=== PATIENT | female | born 1965 | race Caucasian/White ===

== ENCOUNTER 2017-12-26 07:30 | Day surgery (SDC) | payer OTHER, BC ==
[2017-12-23 15:06] VITALS: BMI 22.6
[2017-12-26] MEDS ORDERED: MINERAL OIL 25 ML OIL ONE (08:49)
[2017-12-26] MEDS ORDERED: BACITRACIN 15 GM TUBE TOPICAL OINTMENT ONE (08:49)
[2017-12-26] MEDS ORDERED: LIDOCAINE HCL/EPINEPHRINE/PF 20 ML VIAL ONE (08:50)
[2017-12-26] MEDS ORDERED: PROPOFOL 20 ML ONE (08:56)
[2017-12-26] MEDS ORDERED: fentaNYL CITRATE 250 MCG/5 ML VIAL ONE (08:56)
[2017-12-26] MEDS ORDERED: ROCURONIUM BROMIDE 50 MG/5 ML VIAL ONE (08:57)
[2017-12-26] MEDS ORDERED: ONDANSETRON 4 MG/2 ML VIAL ONE (08:57)
[2017-12-26] MEDS ORDERED: MIDAZOLAM HCL 2 MG/2 ML SINGLE DOSE VIAL ONE (08:57)
[2017-12-26] MEDS ORDERED: DEXAMETHASONE SOD PHOSPHATE 4 MG/1 ML VIAL ONE (08:57)
[2017-12-26] MEDS ORDERED: LIDOCAINE HCL/PF 2% SDV 5ML VIAL ONE (08:57)
[2017-12-26] MEDS ORDERED: LIDOCAINE 1%/EPI 1:100000 (20 ML MULTI DOSE VIAL) ONE (09:09)
[2017-12-26] MEDS ORDERED: ceFAZolin SODIUM 1 GM VIAL ONE (09:28)
[2017-12-26] MEDS ORDERED: MINERAL OIL/PETROLATUM,WHITE 3.5 GM TUBE ONE (09:34)
[2017-12-26] MEDS ORDERED: LIDOCAINE 1%/EPI 1:100000 (20 ML MULTI DOSE VIAL) IJ ONE ×3 (10:00)
[2017-12-26] MEDS ORDERED: ePHEDrine SULFATE 50 MG/1 ML AMPULE ONE (10:30)
[2017-12-26] MEDS ORDERED: NITROGLYCERIN 2% OINTMENT - 1GM PACKET TD ONE (10:38)
[2017-12-26] MEDS ORDERED: ONDANSETRON 4 MG/2 ML VIAL IVPUSH PRN (11:56)
[2017-12-26] MEDS ORDERED: oxyCODONE HCL 5 MG TABLET PO PRN ×4 (11:56→12:00)
[2017-12-26] MEDS ORDERED: ONDANSETRON 4 MG/2 ML VIAL IVPB PRN (12:00)
[2017-12-26] MEDS ORDERED: LACTATED RINGERS SOLUTION 1,000 ML IV SCH ×2 (12:00)
--- NOTE | 2017-12-26 12:00 | OP ---
Operative Note - Note: Operative Date: 12/26/17 Pre-Operative Diagnosis: nasal deect post basal cell carcinoma Operation: forehead flap and skin graft reconstruction of nose Findings: above Post-Operative Diagnosis: Same as Pre-op Surgeon: Eric Wood
--- NOTE | 2017-12-26 12:53 | OP ---
DATE OF OPERATION: 12/26/2017 TITLE OF PROCEDURE: 1. Right-sided paramedian forehead flap reconstruction of nasal tip defect. 2. Excision of nasal tip defect in preparation for flap reconstruction. 3. Full-thickness skin graft from right groin to the nasal flap reconstruction. 4. Local rotation flap reconstruction of donor site defect to scalp. ATTENDING SURGEON: Eric Goode MD ANESTHESIA: General endotracheal anesthesia. A total of 10 mL of 1% lidocaine with 1:100,000 epinephrine are injected locally into the donor site for the flap in the forehead and the scalp and an additional 10 mL of 1% lidocaine with 1:100,000 epinephrine injected into the donor site on the right groin for the skin graft. The patient is marked in the holding area awake and aware of incisions, resulting scars as well as risks, benefits and alternatives for the procedure. Understands and agrees to proceed. Patient is brought to the operating room and placed in the supine position. Sequential compression stockings and TERRI hose are applied. Prior to prepping and draping Doppler is used to manuel out the supratrochlear artery on the patient's right side. The right side is chosen because there is a transverse scar on the forehead on the left side from a previous basal cell carcinoma excision. The artery is identified in its usual location and the flap is marked and patterned including this artery in its base. The artery is also traced using a Doppler as far as possible on to the forehead so that the flap could be centered over this artery which is well within the pattern that was planned. A template is used to plan the tip to be inset of the flap which is a 25-mm width of the superior forehead. This is then transposed using a lap pad to assess for the distance and length. All of this is assured. Once the local anesthetic is then injected the patient is prepped and draped in standard surgical fashion. A timeout is called. Patient, procedure, side and sites are verified. At this point the flap elevation begins distally in the scalp. A subcutaneous elevation is performed under direct vision to a point proximal to where the tip inset will be. At that point the flap is transitioned into a submuscular plane harvesting frontalis muscle with the flap to a level roughly 2 cm superior to the orbital rim. At this point a subperiosteal plane is entered and continuing elevation is performed with a [place] elevator. The flap is gently and carefully mobilized until sufficient length is achieved to inset into the distal tip of the nose without tension with the flap temporarily inset with stay sutures. It is clearly demonstrated that the flap is without ischemia or congestion in this position. The flap is allowed to sit in this position for further evaluation while a full-thickness skin graft is harvested from the right groin. The right groin is injected with 10 mL of 1% lidocaine with 1:100,000 epinephrine. An appropriately sized graft is harvested in a full-thickness fashion from the right groin. Hemostasis is achieved and layered closure is performed of the right groin with series of interrupted buried deep dermal 3-0 Monocryl suture followed by running subcuticular 3-0 Monocryl sutures; 1/2-inch full-length Steri-Strips are used for dressings. The graft is pie crusted and it is then inset into the posterior raw edge of the flap with a running 5-0 chromic gut suture. There is adequate skin graft to cover the full free surface of the flap except for the distal portion to be inset. With the flap now in this position for an extended period of time it is determined that this flap is robustly viable and decision is made to move forward with sacrificing the residuum of the nasal tip skin. This is done down to the level of the lower lateral cartilages for a full nasal tip subunit inset of the flap. Hemostasis is meticulously achieved with bipolar cautery. The flap is then trimmed to conform to the created defect and is inset with a series of interrupted 6-0 nylon sutures. The flap tip remains pink and viable without signs of ischemia or congestion. Attention is then directed toward closure of the forehead and scalp. The proximal portion of the forehead is able to be closed primarily. This is done with a series of tailor-tacking alok followed by a series of interrupted buried deep dermal 3-0 Monocryl suture followed by a running 5-0 nylon suture. The most distal element of the flap which was slightly wider for purposes of covering the entire nasal tip subunit is not able to be closed primarily due to undue tension. For this purpose a small rotation scalp flap is cut with a backcut on the galea and galeal scoring. This rotation is able to be mobilized into the defect. The defect of the rotation flap is closed primarily with a series of interrupted skin alok. The tip of the flap is then inset into the forehead defect with a combination of alok and 5-0 nylon suture. This flap appears pink and viable. The tip of the forehead flap is then dressed routinely with nitropaste prophylactically and the skin graft is dressed with a bacitracin Xeroform, loose 4 x 4 and Hypafix gauze are applied. Patient awoken from anesthesia having tolerated procedure well. Transferred to recovery without complication. It should be noted that throughout the entirety of the case Lacri-Lube had been placed in the eyes for protection. ERIC GOODE M.D. [id number]
[2017-12-26 13:31] VITALS: TEMP 98.1
[2017-12-26 14:32] VITALS: BP 113/62; PULSE 95
== END 2017-12-26 14:30 | disposition home or self-care (01) ==
LOC: FASU 07:30
PROVIDERS: ATTEND Plastic Surgery
PROC: 0HB0XZZ Excision of Scalp Skin, External Approach (ICD-10-PCS; 2017-12-26)
PROC: 0JX10ZB Transfer Face Subcutaneous Tissue and Fascia with Skin and Subcutaneous Tissue, Open Approach (ICD-10-PCS; 2017-12-26)
PROC: 0HR1X73 Replacement of Face Skin with Autologous Tissue Substitute, Full Thickness, External Approach (ICD-10-PCS; principal; 2017-12-26 09:00)
DX: C44.311 Basal cell carcinoma of skin of nose (principal)
CPT/HCPCS: 94760

== ENCOUNTER 2018-01-21 12:51 | Day surgery (SDC) | payer OTHER, BC ==
[2018-01-20 11:15] VITALS: BMI 22.6
[2018-01-21] MEDS ORDERED: NITROGLYCERIN 2% OINTMENT - 1GM PACKET TD ONE (13:21)
[2018-01-21] MEDS ORDERED: BACITRACIN 15 GM TUBE TOPICAL OINTMENT ONE (13:21)
[2018-01-21] MEDS ORDERED: LIDOCAINE 1%/EPI 1:100000 (20 ML MULTI DOSE VIAL) ONE (13:21)
[2018-01-21] MEDS ORDERED: oxyCODONE HCL 5 MG TABLET PO PRN ×3 (13:35→16:02)
[2018-01-21] MEDS ORDERED: ACETAMINOPHEN INJECTION 100 ML IVPB ONE (13:38)
[2018-01-21] MEDS ORDERED: PROPOFOL 20 ML ONE ×2 (13:40)
[2018-01-21] MEDS ORDERED: CLINDAMYCIN PHOSPHATE 600 MG/4 ML VIAL ONE (13:40)
[2018-01-21] MEDS ORDERED: ONDANSETRON 4 MG/2 ML VIAL ONE ×2 (13:41→15:43)
[2018-01-21] MEDS ORDERED: DEXAMETHASONE SOD PHOSPHATE 4 MG/1 ML VIAL ONE (13:41)
[2018-01-21] MEDS ORDERED: ROCURONIUM BROMIDE 50 MG/5 ML VIAL ONE (13:44)
[2018-01-21] MEDS ORDERED: SUCCINYLCHOLINE CHLORIDE 200 MG/10 ML VIAL ONE (13:44)
[2018-01-21] MEDS ORDERED: LACTATED RINGERS SOLUTION 1,000 ML IV SCH ×2 (13:45→16:15)
[2018-01-21] MEDS ORDERED: SCOPOLAMINE HYDROBROMIDE 1 PATCH PATCH.TD72 ONE (14:21)
[2018-01-21] MEDS ORDERED: MIDAZOLAM HCL 2 MG/2 ML SINGLE DOSE VIAL ONE (14:27)
[2018-01-21] MEDS ORDERED: ePHEDrine SULFATE 50 MG/1 ML AMPULE ONE (14:50)
[2018-01-21] MEDS ORDERED: BSS (NA/CA/MG/K) BALANCED SALT SOLUTION OPHTH SOLN 15 ML BOTTLE ONE (15:08)
[2018-01-21] MEDS ORDERED: ONDANSETRON 4 MG/2 ML VIAL IVPB PRN (16:02)
[2018-01-21] MEDS ORDERED: oxyCODONE HCL 5 MG TABLET ONE (16:33)
[2018-01-21] MEDS ORDERED: oxyCODONE HCL 5 MG TABLET PO ONE (16:40)
[2018-01-21 17:13] VITALS: PULSE 94
[2018-01-21 18:28] VITALS: BP 108/62; TEMP 97.5
--- NOTE | 2018-01-22 11:48 | OP ---
DATE OF OPERATION: 01/21/2018 TITLE OF PROCEDURE: Division and inset of forehead flap nasal reconstruction. PREOPERATIVE DIAGNOSIS: Basal cell carcinoma to the nose with forehead flap reconstruction. POSTOPERATIVE DIAGNOSIS: Basal cell carcinoma to the nose with forehead flap reconstruction. The patient is seen in the holding area, marked, awake and aware of all incisions and resulting scars. Patient is counseled on all risks, benefits, alternatives to the procedure, understands, and agrees to proceed. DESCRIPTION OF PROCEDURE: Patient brought to the operating room, placed in supine position. Position is carefully checked by surgical and anesthesia teams. After anesthesia is given, patient is given 600 mg of clindamycin IV. She is prepped and draped in standard surgical fashion. A timeout is called. Patient, procedure, site, and side are verified. Patient is injected with a total of 5 mL of 1% lidocaine with 1:100,000 epinephrine to the perioperative tissues. The flap is marked. It is divided in a position to be re-inset into the forehead. Much of the forehead donor site is able to be closed primarily after excision and freshening of the edges. This is done with a series of interrupted, buried 4-0 Monocryl suture within the frontalis muscle and deep dermis. The residual flap is then unfurled, and a small triangular piece is then re-inset into the forehead defect, realigning the eyebrow. This is inset with a series of interrupted 6-0 nylon suture. Attention is then directed toward the distal flap which is now attached to the nose. The flap is well vascularized to its most-distal extent. It is divided for inset to the tip as a circular component. The flap is entirely well vascularized. It is thinned. The residuum of the tip is then excised to accept the residual flap. Flap is then inset with a series of interrupted 6-0 nylon suture. It is pink and viable with excellent vascularity. The incision is dressed with bacitracin. Patient is awoken from anesthesia, having tolerated procedure well, and transferred to Recovery without complication. ARIANNA GOODE M.D. [id number]
--- NOTE | 2018-01-27 15:21 | PATH ---
Surgical Pathology Report Patient Name: LORETTA DAUGHERTY Med. Rec. #: [id number] /Age/Gender: 1965 (Age: 52) / F Account: [id number] [facility] Taken: 01/21/2018 Received: 01/21/2018 Reported: 01/27/2018 Physicians: Eric Wood Specimen(s) Received EXCESS NASAL FLAP Clinical History Nasal tip cancer Final Diagnosis EXCESS NASAL FLAP, RECONSTRUCTION: PORTION OF SKIN SHOWING AREA OF ULCERATION WITH SCAR FORMATION. Electronically Signed Gracy Fox M.D. Gross Description Received in formalin labeled "excess nasal flap," is a 3.0 x 1.4 x 1.0 cm chun, cylindrical portion of skin with soft tissue at each end. The epidermal surface displays a 0.6 x 0.4 cm chun, crusted lesion at one end, abutting the soft tissue margin. The end of the specimen closest to the lesion is inked blue and the opposing end is inked black. Perpendicular sections to each end are submitted in 2 cassettes as follows: 1-lesion to margin inked blue; 2-margin inked black. DL/01/22/2018 saudi/01/22/2018
== END 2018-01-21 17:35 | disposition home or self-care (01) ==
LOC: FASU 12:51
PROVIDERS: ATTEND Plastic Surgery
PROC: 0H81XZZ Division of Face Skin, External Approach (ICD-10-PCS; principal; 2018-01-21 14:30)
DX: C44.311 Basal cell carcinoma of skin of nose (principal)
CPT/HCPCS: 88304-TC; 94760; J0131